=== PATIENT | female | born 1945 | race Hispanic/Latino ===

== ENCOUNTER 2021-04-01 13:21 | Emergency (ER) | payer MEDICARE ==
[2021-04-01 13:35] VITALS: BP 171/74
[2021-04-01] MEDS ORDERED: AMLOD/BENAZP1 CA3 PO (13:37)
[2021-04-01] MEDS ORDERED: LIPITOR20 M1 PO (13:37)
[2021-04-01] MEDS ORDERED: ALL DAY ALLG10 MG PO (13:40)
[2021-04-01] MEDS ORDERED: ZPAK PO (13:40)
== END 2021-04-01 14:05 | disposition home or self-care (01) ==
LOC: ED 13:21
DX: J06.9 Acute upper respiratory infection, unspecified (principal); J30.9 Allergic rhinitis, unspecified; I10 Essential (primary) hypertension; E78.5 Hyperlipidemia, unspecified

== ENCOUNTER 2022-07-16 21:02 | Emergency (ER) | payer MEDICARE ==
[~2022-07-16] VITALS: Ht 157.5 cm; Wt 58.0 kg
[~2022-07-16 21:02] MED LIST: ALL DAY ALLG10 MG PO; AMLOD/BENAZP1 CA3 PO; LIPITOR20 M1 PO; ZPAK PO
[2022-07-16] MEDS ORDERED: GENTAMICIN SULF5 ML OD (22:07)
[2022-07-16 22:44] VITALS: BP 142/80
== END 2022-07-16 22:44 | disposition home or self-care (01) ==
LOC: ED 21:02
DX: S05.01XA Injury of conjunctiva and corneal abrasion without foreign body, right eye, initial encounter (principal); I10 Essential (primary) hypertension; E78.5 Hyperlipidemia, unspecified; X58.XXXA Exposure to other specified factors, initial encounter; Y93.E2 Activity, laundry; Y92.009 Unspecified place in unspecified non-institutional (private) residence as the place of occurrence of the external cause

== ENCOUNTER 2022-08-23 17:57 | Emergency (ER) | payer MEDICARE ==
[2022-08-23] VITALS (8 sets, daily range): BP systolic 128–160; BP diastolic 58–78
[~2022-08-23] VITALS: Ht 157.5 cm; Wt 60.4 kg
[~2022-08-23 17:57] MED LIST changes: +GENTAMICIN SULF5 ML OD
[2022-08-23] MEDS ORDERED: ULTRAM50 MG PO (20:35)
== END 2022-08-23 21:09 | disposition home or self-care (01) ==
LOC: ED 17:57
DX: M16.12 Unilateral primary osteoarthritis, left hip (principal); I10 Essential (primary) hypertension; E78.5 Hyperlipidemia, unspecified